=== PATIENT | female | born 1945 | race Caucasian/White ===

== ENCOUNTER 2022-02-04 14:17 | Emergency (ER) | payer MEDICARE, BC, SELFPAY ==
[2022-02-04 14:19] VITALS: BP 121/92; PULSE 75; RESP 18; TEMP 36.1; O2SAT 95; BMI 29.2
[2022-02-04 14:44] VITALS: BP 126/70; PULSE 72; RESP 18; O2SAT 96
--- NOTE | 2022-02-04 14:55 | RAD_ITS ---
STUDY: X-RAY - RIGHT HAND REASON FOR EXAM: Female, 76 years old. INJURY TECHNIQUE: 3 view(s) of the hand. COMPARISON: None. FINDINGS: Bones are demineralized. Degenerative arthrosis noted at all visualized joint spaces, most notably at the base of the thumb, and in the IP joint of the thumb, and PIP and DIP joints of the second to the fifth fingers. No subchondral erosions. No demonstrated fracture or suspicious osseous lesion. No foreign body or soft tissue swelling. RAD/Hand Min 3 Views IMPRESSION: Osteopenia with polyarticular arthrosis, no demonstrated fracture Electronically Signed: bAbe Morrison MD at 15:33 EDT ,
--- NOTE | 2022-02-04 14:58 | EDS_ITS ---
HPI History of Present Illness Chief Complaint: Upper Extremity Injury Informant: patient Narrative Narrative: Patient is a 76-year-old female with recent diagnosis of COVID-19 infection yesterday presenting for evaluation after fall. Patient states she tripped on her dog Friday, 2 days ago, causing her to fall on both her arms outstretched and her bilateral knees. She also landed on her right face. No loss of conscious reported. She is not on any blood thinners. The following day she was having difficulty moving her hands and using her fingers for buttons. Denies any numbness. Note she has been fatigued with COVID-19 infection but her headache is resolved. She has a mild dry cough. The symptoms also started on Friday, 2 days ago. [facility] Medical History Hypertension Home Medications gemfibrozil [Lopid] 600 mg PO BID 02/04/22 [History Last Taken Unknown] hydrochlorothiazide 12.5 mg PO DAILY 02/04/22 [History Last Taken Unknown] timolol 1 drp EACH EYE BID 02/04/22 [History Last Taken Unknown] Allergy/AdvReac Type Severity Reaction Status Date / Time Sulfa (Sulfonamide Allergy Rash Verified 02/04/22 14:21 Antibiotics) adhesive AdvReac Rash Verified 02/04/22 14:21 meperidine [From Demerol] AdvReac Nausea Verified 02/04/22 14:21 Surgical History History of knee replacement Social History Smoking Status: Former smoker ROS ROS ED Constitutional Constitutional ED: Reports other Details: fatigue ; Denies chills or fever(s) Eyes Eyes: Denies blurry vision, change in vision or diplopia ENT ENT ED: Denies sore throat Cardiovascular Cardiovascular: Denies chest pain Respiratory/Chest Respiratory/Chest: Reports cough; Denies dyspnea Gastrointestinal Gastrointestinal: Denies abdominal pain, nausea or vomiting Genitourinary Genitourinary ED: Denies dysuria or hematuria Musculoskeletal Musculoskeletal: Reports myalgias Integumentary Denies rash Neurologic Neurologic: Reports weakness; Denies headache(s) or paresthesias Psychiatric Psychiatric: Denies anxiety or depression EXAM Physical Exam Const Vital Signs: 02/04/22 14:19 02/04/22 14:44 Temperature 97 F L Temperature Source Temporal Pulse Rate 75 72 Respiratory Rate 18 18 Blood Pressure 121/92 H 126/70 H Blood Pressure Mean 101 88 Pulse Ox 95 96 Oxygen Delivery Method Room Air Room Air Positive well nourished and well developed General Appearance ED: well developed and NAD HEENT Reports moist mucous membranes normocephalic and atraumatic Eyes PERRL and EOMs intact bilaterally Neck full ROM and supple General: Negative for tenderness Chest Wall inspection of chest normal Resp normal respiratory effort and clear to auscultation bilaterally Cardio regular rate, regular rhythm and no murmurs Cardio Narrative: 2+ radial pulses GI non-tender and non-distended Palpation: soft Extremity Extremity Narrative: No obvious deformity or bony tenderness. Patient does have some weakness with extension of the left wrist but she is able to overcome gravity. She is able to make an okay sign and thumbs up sign however she has difficulty fully extending her fourth and fifth fingers. No numbness apprecia stevan. Patient has difficulty AB ducting the third fourth and fifth left fingers. General Extremety ED: Negative for edema General Extremity: Negative for edema Neuro oriented x3, CN's II-XII intact bilaterally, moves all extremities and no sensory deficits noted Neuro Narrative: Patient has decreased strength in the ulnar nerve distribution of the left hand but no central defects appreciated. Sensorium / Orientation: alert Psych mental status grossly normal Mood & Affect: Negative for depressed or tearful Skin Skin Narrative: Linear abrasion to the right lower leg and a small abrasion to the right mid forearm which patient states are from her dog Lesions: no lesions Rashes: no rashes Trauma: abrasion MDM MDM MDM Narrative Medical decision making narrative: Patient is evaluated for left hand weakness after mechanical fall 2 days ago. She is also had a positive test for COVID yesterday. From a COVID standpoint she is doing well. Is not hypoxic. She does have some viral symptoms. She is clear breath sounds. She does not need further evaluation or work-up for this. Her left hand weakness is highly consistent with neuropraxia likely associated with her fall and I do not think it is a central process. The weakness is localized to extension of the wrist and movement of the third through fifth fingers. I suspect this is an ulnar nerve palsy versus VIII nerve root palsy. Patient is placed in a splint for her hand. Is given orthopedic for outpatient follow-up. X-ray of the wrist shows osteopenia no acute fracture. X-rays reviewed by myself as well as radiology. CT of the brain is obtained because she hit her head 2 days ago with a fall. I did not obtain a CT because of her arm weakness is a's believe that that is peripheral in nature. Patient is given return precautions patient discharged home in stable condition. 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
--- NOTE | 2022-02-04 15:04 | CT_ITS ---
STUDY: CT BRAIN WITHOUT CONTRAST REASON FOR EXAM: Female, 76 years old. Headache after a fall RADIATION DOSAGE (If Supplied By Facility): CTDIvol = ( 44.99 ) mGy, DLP = ( 812.98 ) mGycm TECHNIQUE: Transaxial CT imaging of the brain was performed without administration of intravenous contrast material. Individualized dose optimization techniques were used for this CT. COMPARISON: No relevant priors. FINDINGS: Normal soft tissue structures. Normal calvarium. Normal size ventricles and extra-axial spaces for the patient''s age. Normal white matter tracts of the cerebral hemispheres. Normal basal ganglia and thalami. Normal brainstem. Normal cerebellum. There is no intracranial hemorrhage. There are no findings of an acute ischemic infarction. Normal visualized paranasal sinuses. CT/Brain/Head without Contrast IMPRESSION: Chronic involutional changes of the brain, no acute hemorrhage. Electronically Signed: Abbe Morrison MD at 15:35 EDT ,
== END 2022-02-04 15:59 | disposition home or self-care (01) ==
PROVIDERS: Emergency Provider Emergency Medicine; PCP Internal Medicine; Visit Provider Emergency Medicine
DX: S09.90XA Unspecified injury of head, initial encounter (principal); Z87.891 Personal history of nicotine dependence; R53.1 Weakness; I10 Essential (primary) hypertension; U07.1 COVID-19; Z79.899 Other long term (current) drug therapy; S54.02XA Injury of ulnar nerve at forearm level, left arm, initial encounter; W01.0XXA Fall on same level from slipping, tripping and stumbling without subsequent striking against object, initial encounter; Y93.9 Activity, unspecified; Y99.9 Unspecified external cause status; Y92.9 Unspecified place or not applicable
CPT/HCPCS: 70450; 73130; 99283

== ENCOUNTER → 2022-05-06 | Outpatient (CLI) | payer MEDICARE, BC, SELFPAY ==
[2022-05-06 16:52] LABS: Absolute Lymphocyte Count 1.83 X10^3/uL (0.83-4.51); Basophil# 0.06 X10^3/uL; Basophil% 1.1 % (0-1); Eosinophil# 0.18 X10^3/uL; Eosinophils% 3.2 % (0-5); Hematocrit 38.7 % (37-47); Hemoglobin 12.8 g/dL (12.0-15.0); Lymphocyte # 1.83 X10^3/ul (0.83-4.51); Lymphocyte % 32.7 % (19-41); Mean Corp Hgb Conc 33.1 g/dL (32-36); Mean Corpuscular Volume 90.6 fL (81-99); Mean Platelet Vol. 10.6 fl (6.2-12.0); Monocyte# 0.56 X10^3/uL; NRBC Flagged by Analyzer 0 % (0-5); Neutrophil # 2.95 X10^3/uL (2.7-7.7); Neutrophil % 52.8 % (47-70); Platelet Count 317 K/mm3 (150-450); RBC Distribution Width CV 13.4 % (11.6-14.6); RBC Distribution Width SD 44.1 fl (35.1-43.9); Red Blood Count 4.27 M/mm3 (4.2-5.4); White Blood Count 5.6 K/mm3 (4.4-11.0)
[2022-05-06 17:00] LABS: ALB/GLOB Ratio 0.8 RATIO (0.9-2.4); AST(SGOT) 25 U/L (15-37); Alanine Aminotransfer ALT/SGPT 25 U/L (13-56); Albumin, Serum 3.5 g/dL (3.2-5.0); Alkaline Phosphatase 59 U/L (45-117); Anion Gap 5 (5-15); BUN 20 mg/dL (7-18); BUN/Creat Ratio 28.1 RATIO (10-20); Calcium,Total 9.9 mg/dL (8.5-10.1); Chloride 103 mmol/L (98-107); Cholesterol 191 mg/dL (200); Creatinine, Serum 0.71 mg/dL (0.55-1.02); EST Glomerular Filtration Rate 84 mL/min (>60); Est Glom Filt Rate - Afr Amer 102 mL/min (>60); Globulin 4.2 g/dL (2.2-4.2); Glucose 85 mg/dL (74-106); High Density Lipoprotein 86 mg/dL; Potassium 4.1 mmol/L (3.5-5.1); Protein, Total 7.7 g/dL (6.4-8.2); Sodium Level 137 mmol/L (136-145); Triglycerides 49 mg/dL; Very Low Density Lipoprotein 10 mg/dL (5-40)
== END | disposition home or self-care (01) ==
LOC: BIMLAB 15:15
PROVIDERS: PCP Internal Medicine; Referring Provider Internal Medicine; Visit Provider Internal Medicine
DX: E78.5 Hyperlipidemia, unspecified (principal); I10 Essential (primary) hypertension
CPT/HCPCS: 36415; 80053; 80061; 85025

== ENCOUNTER → 2022-05-14 | Outpatient (CLI) | payer MEDICARE, BC, SELFPAY ==
--- NOTE | 2022-05-14 16:07 | BI_ITS ---
MAMMOGRAPHY - BILATERAL SCREENING REASON FOR EXAM: Female, 76 years old. Routine annual screening examination. PERTINENT HISTORY: Sister with breast cancer. Mother with breast cancer. TECHNIQUE: Digital bilateral breast francis (3D mammographic acquisition) in the CC and MLO projections. 2-D mediolateral oblique (MLO) and craniocaudad (CC) views of both breasts were obtained. CAD: Full Field Digital Mammography with Computer Added Detection was performed. COMPARISON: Comparison is made with prior examination dated 03/25/2020. FINDINGS: Breast Composition: The breasts are heterogeneously dense, which may obscure small masses. There are no dominant masses or suspicious calcifications. Stable small benign appearing bilateral axillary nodes. No other significant abnormalities are identified. There has been no significant change since the prior study. BI/SCRN MAMM (CAD)W/FRANCIS BILAT IMPRESSION: Stable bilateral screening mammogram. Yearly follow-up mammogram recommended. (A) ASSESSMENT CATEGORY: BIRADS Category 2: Benign. A letter regarding these results will be sent to the patient by the facility within 30 days. Approximately 10% of breast cancers are not detected by mammography. A normal mammogram should not delay biopsy of a clinically suspicious abnormality. [id number] Electronically Signed: Jose Carlos Jones MD at 8:24 EDT ,
--- NOTE | 2022-05-14 16:11 | BD_ITS ---
STUDY: DUAL ENERGY X-RAY ABSORPTIOMETRY / DXA REASON FOR EXAM: Female, 76 years old. Post menopausal TECHNIQUE: Bone Mineral Density (BMD) measurements of lumbar spine and bilateral hips were obtained. COMPARISON: None. FINDINGS: Lumbar Spine (L1-L4): g/cm2 (1.082) / T-score (0.3) / Z-score (2.9) Findings are suggestive of normal bone density with a low fracture risk. Left Femur Total: g/cm2 (0.933) / T-score (-0.1) / Z-score (1.9) Left Femoral Neck: g/cm2 (0.668) / T-score (-1.6) / Z-score (0.6) Right Femur Total: g/cm2 (0.962) / T-score (0.2) / Z-score (2.2) Right Femoral Neck: g/cm2 (0.706) / T-score (-1.3) / Z-score (1.0) BD/Dexa Bone Density Study IMPRESSION: The patient is considered osteopenic as outlined below according to World Torin Organization (WHO) criteria with a moderate fracture risk. Reference Information: The T-score is the number of standard deviations above or below the standard which is normal for young adults at their peak bone mineral density. The World Health Organization (WHO) interprets the T-scores as follows: Above -1 Normal bone density Between -1 and -2.5 Osteopenia Equal to / or below -2.5 Osteoporosis As a practical clinical guideline, osteopenia may be graded as follows: Mild -1 through -1.5 Moderate -1.6 through -2.0 Severe -2.1 through -2.4 The Z-score is the number of standard deviations above or below age-matched controls. A Z-score of less than -1.5 would be considered abnormal. References: 1. NIH Osteoporosis and Related Bone Diseases www osteo.org 2. International Society for Clinical Densitometry www iscd.org 3. National Osteoporosis Foundation www nof.org Electronically Signed: Jose Carlos Jones MD at 12:18 EDT ,
== END | disposition home or self-care (01) ==
LOC: OPBD 16:06
PROVIDERS: PCP Internal Medicine; Referring Provider Internal Medicine; Visit Provider Internal Medicine
DX: Z78.0 Asymptomatic menopausal state (principal); Z12.31 Encounter for screening mammogram for malignant neoplasm of breast
CPT/HCPCS: 77063; 77067; 77080

== ENCOUNTER → 2023-02-17 | Outpatient (CLI) | payer OTHER, MEDICARE, SELFPAY ==
[2023-02-17 15:20] LABS: Absolute Lymphocyte Count 1.44 X10^3/uL (0.83-4.51); Absolute Neutrophil Count 3.3 X10^3/uL (2.0-7.7); Basophil# 0.06 X10^3/uL; Basophil% 1.1 % (0-1); Eosinophil# 0.32 X10^3/uL; Eosinophils% 5.6 % (0-5); Hematocrit 38.3 % (37-47); Hemoglobin 12.7 g/dL (12.0-15.0); Lymphocyte # 1.44 X10^3/ul (0.83-4.51); Lymphocyte % 25.3 % (19-41); Mean Corp Hgb Conc 33.2 g/dL (32-36); Mean Corpuscular Hgb 30.8 pg (27.0-32.0); Mean Corpuscular Volume 92.7 fL (81-99); Mean Platelet Vol. 10.4 fl (6.2-12.0); Monocyte# 0.59 X10^3/uL; Monocyte% 10.4 % (0-10); NRBC Flagged by Analyzer 0 % (0-5); Neutrophil # 3.28 X10^3/uL (2.7-7.7); Neutrophil % 57.4 % (47-70); Platelet Count 329 K/mm3 (150-450); RBC Distribution Width CV 13.3 % (11.6-14.6); RBC Distribution Width SD 44.8 fl (35.1-43.9); Red Blood Count 4.13 M/mm3 (4.2-5.4); White Blood Count 5.7 K/mm3 (4.4-11.0)
[2023-02-17 16:02] LABS: AST(SGOT) 26 U/L (15-37); Alanine Aminotransfer ALT/SGPT 19 U/L (13-56); Albumin, Serum 3.7 g/dL (3.2-5.0); Alkaline Phosphatase 73 U/L (45-117); Anion Gap 4 (5-15); BUN 21 mg/dL (7-18); Calcium,Total 9.9 mg/dL (8.5-10.1); Chloride 109 mmol/L (98-107); Cholesterol 190 mg/dL (200); EST Glomerular Filtration Rate 86 mL/min (>60); Est Glom Filt Rate - Afr Amer 104 mL/min (>60); Globulin 3.8 g/dL (2.2-4.2); Glucose 94 mg/dL (74-106); High Density Lipoprotein 85 mg/dL; Potassium 4.3 mmol/L (3.5-5.1); Protein, Total 7.5 g/dL (6.4-8.2); Sodium Level 138 mmol/L (136-145); Triglycerides 79 mg/dL; Very Low Density Lipoprotein 16 mg/dL (5-40)
== END | disposition home or self-care (01) ==
LOC: BIMLAB 14:27
PROVIDERS: PCP Internal Medicine; Visit Provider Internal Medicine
DX: I10 Essential (primary) hypertension (principal)
CPT/HCPCS: 36415; 80053; 80061; 85025

== ENCOUNTER → 2023-05-20 | Outpatient (CLI) | payer MEDICARE, SELFPAY ==
--- NOTE | 2023-05-20 11:52 | BI_ITS ---
MAMMOGRAPHY - BILATERAL SCREENING REASON FOR EXAM: Female, 77 years old. Routine annual screening examination. PERTINENT HISTORY: Sister with breast cancer. Mother with breast cancer. TECHNIQUE: Digital bilateral breast francis (3D mammographic acquisition) in the CC and MLO projections. 2-D mediolateral oblique (MLO) and craniocaudad (CC) views of both breasts were obtained. CAD: Full Field Digital Mammography with Computer Added Detection was performed. COMPARISON: Comparison is made with prior study May 14, 2022. FINDINGS: Breast Composition: There are scattered areas of fibroglandular density. There are no dominant masses or suspicious calcifications. Stable small benign-appearing bilateral axillary lymph nodes. No other significant abnormalities are identified. There has been no significant change since the prior study. BI/SCRN MAMM (CAD)W/FRANCIS BILAT IMPRESSION: Stable bilateral screening mammogram. Yearly follow-up mammogram recommended. (A) ASSESSMENT CATEGORY: BIRADS Category 2: Benign. A letter regarding these results will be sent to the patient by the facility within 30 days. Approximately 10% of breast cancers are not detected by mammography. A normal mammogram should not delay biopsy of a clinically suspicious abnormality. [id number] Electronically Signed: Jose Carlos Jones MD at 12:52 EDT ,
== END | disposition home or self-care (01) ==
LOC: OPBI 11:51
PROVIDERS: PCP Internal Medicine; Referring Provider Internal Medicine; Visit Provider Internal Medicine
DX: Z12.31 Encounter for screening mammogram for malignant neoplasm of breast (principal)
CPT/HCPCS: 77063; 77067

== ENCOUNTER → 2023-08-25 | Outpatient (CLI) | payer MEDICARE, SELFPAY ==
[2023-08-25 15:35] LABS: Absolute Lymphocyte Count 1.69 X10^3/uL (0.83-4.51); Absolute Neutrophil Count 2.5 X10^3/uL (2.0-7.7); Basophil# 0.08 X10^3/uL; Basophil% 1.6 % (0-1); Eosinophils% 3.9 % (0-5); Hematocrit 40.6 % (37-47); Hemoglobin 12.7 g/dL (12.0-15.0); Lymphocyte # 1.69 X10^3/ul (0.83-4.51); Lymphocyte % 32.9 % (19-41); Mean Corp Hgb Conc 31.3 g/dL (32-36); Mean Corpuscular Hgb 28.7 pg (27.0-32.0); Mean Corpuscular Volume 91.9 fL (81-99); Mean Platelet Vol. 10.6 fl (6.2-12.0); Monocyte# 0.64 X10^3/uL; Monocyte% 12.5 % (0-10); NRBC Flagged by Analyzer 0 % (0-5); Neutrophil # 2.51 X10^3/uL (2.7-7.7); Neutrophil % 48.9 % (47-70); Platelet Count 332 K/mm3 (150-450); RBC Distribution Width CV 13.8 % (11.6-14.6); RBC Distribution Width SD 46.6 fl (35.1-43.9); Red Blood Count 4.42 M/mm3 (4.2-5.4); White Blood Count 5.1 K/mm3 (4.4-11.0)
[2023-08-25 15:56] LABS: Anion Gap 5 (5-15); BUN 17 mg/dL (7-18); BUN/Creat Ratio 26.4 RATIO (10-20); Calcium,Total 9.8 mg/dL (8.5-10.1); Chloride 106 mmol/L (98-107); Creatinine, Serum 0.64 mg/dL (0.55-1.02); EST Glomerular Filtration Rate 94 mL/min (>60); Est Glom Filt Rate - Afr Amer 114 mL/min (>60); Glucose 78 mg/dL (74-106); Potassium 4.2 mmol/L (3.5-5.1); Sodium Level 139 mmol/L (136-145)
== END | disposition home or self-care (01) ==
LOC: BIMLAB 14:02
PROVIDERS: PCP Internal Medicine; Referring Provider Internal Medicine; Visit Provider Internal Medicine
DX: I10 Essential (primary) hypertension (principal)
CPT/HCPCS: 36415; 80048; 85025

== ENCOUNTER → 2024-03-01 | Outpatient (CLI) | payer MEDICARE, SELFPAY ==
[2024-03-01 20:34] LABS: Anion Gap 7 (5-15); BUN 22 mg/dL (7-18); BUN/Creat Ratio 31.5 RATIO (10-20); Calcium,Total 10.2 mg/dL (8.5-10.1); Chloride 105 mmol/L (98-107); EST Glomerular Filtration Rate 86 mL/min (>60); Est Glom Filt Rate - Afr Amer 104 mL/min (>60); Glucose 101 mg/dL (74-106); Potassium 4.5 mmol/L (3.5-5.1); Sodium Level 137 mmol/L (136-145)
== END | disposition home or self-care (01) ==
LOC: BIMLAB 11:55
PROVIDERS: PCP Internal Medicine; Visit Provider Internal Medicine
DX: I10 Essential (primary) hypertension (principal)
CPT/HCPCS: 36415; 80048

== ENCOUNTER → 2024-03-16 | Outpatient (CLI) | payer MEDICARE, SELFPAY ==
--- NOTE | 2024-03-16 09:32 | BI_ITS ---
MAMMOGRAPHY - BILATERAL DIAGNOSTIC REASON FOR EXAM: Female, 78 years old. Bilateral Nipple Rash PERTINENT HISTORY: Non-contributory. TECHNIQUE: Digital examination. Mediolateral oblique (MLO) and craniocaudad (CC) views of both breasts were obtained. CAD: CAD was performed on this study. COMPARISON: 05/20/2023 FINDINGS: Breast Composition: There are scattered areas of fibroglandular density. There are no dominant masses or suspicious calcifications. No other significant abnormalities are identified. Bilateral benign vascular calcifications can be associated with coronary artery disease. BI/DIAG MAMM W/CAD, BILAT IMPRESSION: Stable bilateral diagnostic mammogram. ASSESSMENT CATEGORY: BIRADS Category 2: Benign. A letter regarding these results will be sent to the patient by the facility within 30 days. FOLLOW UP RECOMMENDATION: Yearly follow up mammogram recommended. (A) Approximately 10% of breast cancers are not detected by mammography. A normal mammogram should not delay biopsy of a clinically suspicious abnormality. Electronically Signed: Ezio Jacobsen MD at 10:18 EDT ,
== END | disposition home or self-care (01) ==
PROVIDERS: PCP Internal Medicine; Referring Provider Internal Medicine; Visit Provider Internal Medicine
DX: N64.89 Other specified disorders of breast (principal)
CPT/HCPCS: 77062; 77066; G0279

== ENCOUNTER 2024-08-02 18:52 | Emergency (ER) | payer MEDICARE, SELFPAY ==
[2024-08-02 18:52] VITALS: BP 118/103; PULSE 71; RESP 18; TEMP 35.9; O2SAT 99; BMI 31.2
--- NOTE | 2024-08-02 19:15 | EDS_ITS ---
HPI <MIKKI Saldana - Last Filed: 08/02/24 21:20> History of Present Illness Chief Complaint: Fall Narrative Narrative: Patient presenting today with pain to her right wrist and hand after a mechanical fall occurred this evening. She was walking her dog and the dog pulled her causing her to fall onto an outstretched right hand. She is right- handed. She did not hit her head, she denies any LOC. She is able to ambulate and denies any other injury. PFSH <MIKKI Saldana - Last Filed: 08/02/24 21:20> [facility] Medical History Visit for suture removal Muscle pain Face lesion Nipple crusting Contact dermatitis Osteoarthritis COVID Health care maintenance Hyperlipidemia Basal cell carcinoma Vision problem Skin cancer Osteopenia High cholesterol Hearing problem Glaucoma Cataract Arthritis Hypertension Home Medications ?Medication ?Instructions ?Recorded ?Last Taken ?Type flaxseed oil 1,000 mg capsule 1,000 mg PO DAILY 05/02/22 Unknown History folic acid 20 mg capsule 20 mg PO DAILY 05/02/22 Unknown History omega 9-wuh-xcz-fish oil 60 mg-90 1 cap PO DAILY 05/02/22 Unknown History mg-500 mg capsule (Fish Oil) turmeric 400 mg capsule mg PO 05/02/22 Unknown History timolol 0.5 % eye drops 1 drp ophthalmic (eye) DAILY 05/06/22 Unknown History coq10 PO 02/23/24 Unknown History hydrocortisone 2.5 % topical cream 1 applic topical BID PRN skin 02/23/24 Unknown Rx irritation #30 grams gemfibrozil 600 mg tablet (Lopid) 600 mg PO BID #180 tabs 04/22/24 Unknown Rx hydrochlorothiazide 12.5 mg capsule 12.5 mg PO DAILY #90 caps 04/22/24 Unknown Rx Allergy/AdvReac Type Severity Reaction Status Date / Time latex Allergy Mild Rash Verified 08/02/24 18:56 Sulfa (Sulfonamide Allergy Rash Verified 08/02/24 18:56 Antibiotics) adhesive AdvReac Rash Verified 08/02/24 18:56 meperidine (From Demerol) AdvReac Nausea Verified 08/02/24 18:56 Family History Sister Arthritis Breast cancer Mother Breast cancer Father Heart disease Brother Hypertension Parkinson disease Surgical History History of tubal ligation History of bunionectomy History of bilateral knee replacement History of knee replacement Social History Smoking Status: Former smoker Tobacco: How many years used: 2 alcohol intake: never substance use type: does not use what type of physical activity do you participate in: walking ROS <MIKKI Saldana - Last Filed: 08/02/24 21:20> ROS ED Constitutional Constitutional ED: Denies chills or fever(s) Cardiovascular Cardiovascular: Denies chest pain Respiratory/Chest Respiratory/Chest: Denies cough or dyspnea Musculoskeletal Musculoskeletal: Reports arthralgias Integumentary Denies rash Neurologic Neurologic: Denies paresthesias EXAM <MIKKI Saldana - Last Filed: 08/02/24 21:20> Physical Exam Const Vital Signs: 08/02/24 18:52 08/02/24 19:04 08/02/24 20:29 Temperature 96.7 F L 99 F Temperature Source Temporal Pulse Rate 71 70 Respiratory Rate 18 18 Respiratory Effort Normal Respiratory Depth Normal Respiratory Pattern Normal Blood Pressure 118/103 H 116/95 H Blood Pressure Mean 108 102 Pulse Ox 99 99 Oxygen Delivery Method Room Air Room Air Positive well nourished, well developed and no apparent distress General Appearance ED: well developed HEENT Reports normocephalic and head/scalp atraumatic Mouth ED: Yes moist mucous membranes normal Eyes PERRL and EOMs intact bilaterally Neck full ROM and supple Chest Wall inspection of chest normal Resp normal respiratory effort and clear to auscultation bilaterally Cardio regular rate and regular rhythm Back/Spine normal ROM and normal to inspection Extremity normal to inspection and full ROM Extremity Narrative: Pain to palpation to the right wrist and metacarpals, patient is able to flex and extend at the MCP, PIP, and DIP joints of all fingers of the right hand. Right radial pulse 2+, good cap refill, sensation intact. Neuro oriented x3, CN's II-XII intact bilaterally, moves all extremities, no focal motor deficits and no sensory deficits noted Sensorium / Orientation: awake and alert Psych mental status grossly normal and thought process normal Skin no rashes or lesions noted and no wounds <Dr. Yanick Feliz MD - Last Filed: 08/02/24 22:10> Physical Exam Const Vital Signs: 08/02/24 18:52 08/02/24 19:04 08/02/24 20:29 Temperature 96.7 F L 99 F Temperature Source Temporal Pulse Rate 71 70 Respiratory Rate 18 18 Respiratory Effort Normal Respiratory Depth Normal Respiratory Pattern Normal Blood Pressure 118/103 H 116/95 H Blood Pressure Mean 108 102 Pulse Ox 99 99 Oxygen Delivery Method Room Air Room Air [facility] <MIKKI Saldana - Last Filed: 08/02/24 21:20> [facility] Narrative Medical decision making narrative: Patient presenting today with pain to her right wrist and metacarpals after a mechanical fall occurred this evening. X-ray will be obtained to rule out fracture. X-ray shows slightly widened scapholunate space. She will be given a Velcro wrist splint. I have given her a referral for orthopedics. She was given Tylenol here for her pain. She can take Tylenol as needed at home for pain. RICE instructions were discussed. She will be discharged home in stable condition. Radiography X-Ray: Read by ED Physician Diagnostic Testing: Clinical Impression(s) from Imaging Studies Wrist X-Ray 08/02/24 19:20 IMPRESSION: Upper limits of normal to slightly widened scapholunate space, maximum 3 mm. Please correlate with exam and clinical suspicion of scapholunate dissociation and rotary subluxation of the scaphoid. Electronically Signed: Radha Salazar MD at 20:11 EST , <Dr. Yanick Feliz MD - Last Filed: 08/02/24 22:10> [facility] Radiography Diagnostic Testing: Clinical Impression(s) from Imaging Studies Wrist X-Ray 08/02/24 19:20 IMPRESSION: Upper limits of normal to slightly widened scapholunate space, maximum 3 mm. Please correlate with exam and clinical suspicion of scapholunate dissociation and rotary subluxation of the scaphoid. Electronically Signed: Radha Salazar MD at 20:11 EST , Treatment and Re-Evaluation Comments:: I have personally performed a face to face assessment of the patient and have reviewed the GIACOMO Note. I performed a substantive portion of the visit including all aspects of the following. My fragoso findings include: History is fall onto right hand/wrist, states that she was holding the leash and her dog pulled her down. Exam is tender throughout the carpus, able to range but with pain, including with supination/pronation. Neurovascular intact distally. Not able to re produce any tenderness in the metacarpals or fingers. She states it hurts to move them. 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 No other fractures or dislocations. Given that she is placed in a prefabricated splint, is neurovascular intact distally after placement, and advised to follow-up with orthopedics. Other additions or changes: [None] Discharge Plan Triage Chief Complaint: Fall ED Midlevel Provider: Leona Lux ED Provider: Yanick Feliz Dx/Rx/DC Orders Clinical Impression: Scapho-lunate dissociation, Fall Instructions: ED Wrist Sprain Prescriptions: No Action timolol 0.5 % drops 1 drp ophthalmic (eye) DAILY folic acid 20 mg capsule 20 mg PO DAILY omega 6-rto-xvo-fish oil [Fish Oil] 60-90-500 mg capsule 1 cap PO DAILY flaxseed oil 1,000 mg capsule 1,000 mg PO DAILY Rx Instructions: administer with a meal turmeric 400 mg capsule PO coq10 PO Rx Instructions: takes few times a week hydrocortisone 2.5 % cream 1 applic topical BID PRN (Reason: skin irritation) Qty: 30 1RF gemfibrozil [Lopid] 600 mg tablet 600 mg PO BID Qty: 180 1RF hydrochlorothiazide 12.5 mg capsule 12.5 mg PO DAILY Qty: 90 1RF Primary Care Provider: Phylicia Ward Referrals: Phylicia Ward MD [Primary Care Provider] - Ismael Moncada DO [Med Staff - Active Staff] - 1 Week Activity Restrictions/Additional Instructions: Follow-up with orthopedics, return for any other concerns. You can take Tylenol for your pain as needed. Print Language: Frisian Disposition Disposition: Home, Self Care Discharge Date/Time: 08/02/24 20:36
--- NOTE | 2024-08-02 19:20 | RAD_ITS ---
EXAM: XR RIGHT WRIST COMPLETE, 3 OR MORE VIEWS CLINICAL INDICATION: injury TECHNIQUE: Frontal, lateral and oblique views of the right wrist. COMPARISON: No relevant prior studies available. FINDINGS: BONES/JOINTS: Slight visibly widened space between the proximal scaphoid and lunate at 3 mm, 2 mm at the distal scapholunate space. A consensus measurement is not defined but a cut off of 3 mm-4 mm is considered reasonable to indicate scapholunate dissociation, often with rotary subluxation of the scaphoid. This current measurement is not pathognomonic. No visible fracture. Mild degenerative change at the base of the thumb. No sclerotic or destructive changes observed. SOFT TISSUES: Mild ventral and dorsal soft tissue swelling. No radiopaque foreign body. RAD/Wrist min 3 Views IMPRESSION: Upper limits of normal to slightly widened scapholunate space, maximum 3 mm. Please correlate with exam and clinical suspicion of scapholunate dissociation and rotary subluxation of the scaphoid. Electronically Signed: Radha Salazar MD at 20:11 EST ,
[2024-08-02] MEDS: Acetaminophen 325 MG Tablet 650 MG PO (19:41)
[2024-08-02 20:29] VITALS: BP 116/95; PULSE 70; RESP 18; TEMP 37.2; O2SAT 99
== END 2024-08-02 20:36 | disposition home or self-care (01) ==
PROVIDERS: Emergency Provider Emergency Medicine; PCP Internal Medicine; Visit Provider Emergency Medicine
DX: M25.531 Pain in right wrist (principal); Z86.16 Personal history of COVID-19; Z87.891 Personal history of nicotine dependence; W19.XXXA Unspecified fall, initial encounter
CPT/HCPCS: 73110; 99283

== ENCOUNTER → 2024-08-30 | Outpatient (CLI) | payer MEDICARE, SELFPAY ==
[2024-08-30 12:58] LABS: Bacteria 0 SEEN /hpf (None Seen); Mucous, Urine 0 SEEN /hpf (<or=2+); Red Blood Cells-Urine 0 SEEN /hpf (0-5); White Blood Cells 0 SEEN /hpf (0-5)
[2024-08-30 15:07] LABS: Absolute Neutrophil Count 2.1 X10^3/uL (2.0-7.7); Basophil# 0.05 X10^3/uL; Basophil% 1.2 % (0-1); Eosinophil# 0.14 X10^3/uL; Eosinophils% 3.4 % (0-5); Hematocrit 38.6 % (37-47); Hemoglobin 12.4 g/dL (12.0-15.0); Lymphocyte % 31.8 % (19-41); Mean Corp Hgb Conc 32.1 g/dL (32-36); Mean Corpuscular Hgb 29.8 pg (27.0-32.0); Mean Corpuscular Volume 92.8 fL (81-99); Monocyte# 0.45 X10^3/uL; NRBC Flagged by Analyzer 0 % (0-5); Neutrophil # 2.14 X10^3/uL (2.7-7.7); Neutrophil % 52.4 % (47-70); Platelet Count 302 K/mm3 (150-450); RBC Distribution Width CV 13.6 % (11.6-14.6); RBC Distribution Width SD 46.4 fl (35.1-43.9); Red Blood Count 4.16 M/mm3 (4.2-5.4); White Blood Count 4.1 K/mm3 (4.4-11.0)
[2024-08-30 15:12] LABS: Color, Urine Yellow (Yellow); Glucose, Dipstick Normal (Normal); Ketone-Dipstick Negative (Negative); Leukocyte Esterase-Dipstick Negative /ul (Negative); Nitrite-Dipstick Negative (Negative); Occult Blood-Urine Negative /ul (Negative); Protein-Dipstick Negative (Negative); Urine Bilirubin Dipstick Negative (Negative); Urine Clarity Sl. Cloudy (Clear); Urine Urobilinogen Normal (Normal)
[2024-08-30 15:41] LABS: Squamous Epithelial Cells - UA 0-5 SEEN /hpf (5-10)
[2024-08-30 15:41] LABS: ALB/GLOB Ratio 0.8 RATIO (0.9-2.4); AST(SGOT) 20 U/L (15-37); Alanine Aminotransfer ALT/SGPT 21 U/L (13-56); Albumin, Serum 3.4 g/dL (3.2-5.0); Alkaline Phosphatase 68 U/L (45-117); Anion Gap 5 (5-15); BUN 20 mg/dL (7-18); BUN/Creat Ratio 30.4 RATIO (10-20); Calcium,Total 9.8 mg/dL (8.5-10.1); Chloride 108 mmol/L (98-107); Cholesterol 199 mg/dL (200); Creatinine, Serum 0.66 mg/dL (0.55-1.02); EST Glomerular Filtration Rate 92 mL/min (>60); Est Glom Filt Rate - Afr Amer 111 mL/min (>60); Globulin 4.3 g/dL (2.2-4.2); Glucose 112 mg/dL (74-106); High Density Lipoprotein 91 mg/dL; Potassium 3.8 mmol/L (3.5-5.1); Protein, Total 7.7 g/dL (6.4-8.2); Sodium Level 139 mmol/L (136-145); Triglycerides 47 mg/dL; Very Low Density Lipoprotein 9 mg/dL (5-40)
[2024-08-30 18:13] LABS: Vitamin D,25 Hydroxy 40.4 ng/mL
== END | disposition home or self-care (01) ==
LOC: BIMLAB 11:49
PROVIDERS: PCP Internal Medicine; Referring Provider Internal Medicine; Visit Provider Internal Medicine
DX: M85.80 Other specified disorders of bone density and structure, unspecified site (principal); N32.81 Overactive bladder; E78.5 Hyperlipidemia, unspecified
CPT/HCPCS: 36415; 80053; 80061; 81001; 82306; 85025

== ENCOUNTER → 2025-01-31 | Outpatient (CLI) | payer MEDICARE, SELFPAY ==
[2025-01-31 15:22] LABS: Absolute Lymphocyte Count 1.16 X10^3/uL (0.83-4.51); Absolute Neutrophil Count 2.9 X10^3/uL (2.0-7.7); Basophil# 0.09 X10^3/uL; Basophil% 1.8 % (0-1); Eosinophil# 0.22 X10^3/uL; Eosinophils% 4.4 % (0-5); Hemoglobin 12.8 g/dL (12.0-15.0); Lymphocyte # 1.16 X10^3/ul (0.83-4.51); Lymphocyte % 23.1 % (19-41); Mean Corp Hgb Conc 32.8 g/dL (32-36); Mean Corpuscular Volume 91.3 fL (81-99); Mean Platelet Vol. 11.1 fl (6.2-12.0); Monocyte# 0.61 X10^3/uL; Monocyte% 12.1 % (0-10); NRBC Flagged by Analyzer 0 % (0-5); Neutrophil # 2.93 X10^3/uL (2.7-7.7); Neutrophil % 58.2 % (47-70); Platelet Count 305 K/mm3 (150-450); RBC Distribution Width CV 13.6 % (11.6-14.6); RBC Distribution Width SD 45.3 fl (35.1-43.9); Red Blood Count 4.27 M/mm3 (4.2-5.4)
[2025-01-31 16:11] LABS: Anion Gap 11 (5-15); BUN 26 mg/dL (4-19); BUN/Creat Ratio 43.4 RATIO (10-20); Calcium,Total 10.3 mg/dL (7.6-11.0); Carbon Dioxide 22.4 mmol/L (21.0-32.0); Chloride 105 mmol/L (98-108); Creatinine, Serum 0.59 mg/dL (0.70-1.20); EST Glomerular Filtration Rate 90 (>60); Glucose 91 mg/dL (70-99); Potassium 4.3 mmol/L (3.3-5.1); Sodium Level 139 mmol/L (133-145)
== END | disposition home or self-care (01) ==
LOC: BIMLAB 11:55
PROVIDERS: PCP Internal Medicine; Referring Provider Internal Medicine; Visit Provider Internal Medicine
DX: I10 Essential (primary) hypertension (principal)
CPT/HCPCS: 36415; 80048; 85025

== ENCOUNTER → 2025-04-18 | Outpatient (CLI) | payer MEDICARE, SELFPAY ==
--- NOTE | 2025-04-18 12:15 | BI_ITS ---
EXAM: SCRN MAMM (CAD)W/FRANCIS BILAT DATE: 04/18/2025 CLINICAL HISTORY: F, Age 79 y/o , BREAST CANCER SCREENING TECHNIQUE: SCRN MAMM (CAD)W/FRANCIS BILAT COMPARISON: Prior exam(s) dated 03/16/2024. FINDINGS: TISSUE DENSITY: The breasts are almost entirely fatty. Bilateral Breast Mammographic Findings: Benign vascular calcifications and round microcalcifications are seen in breasts. No suspicious masses, suspicious cluster of microcalcifications, architectural distortion or secondary sign of malignancy is identified in either breast. Stable well-circumscribed isodense masses are seen in the superior outer aspect of the right are noted. These appear to have fatty hilum on the francis images and are most compatible with intramammary lymph nodes. BI/SCRN MAMM (CAD)W/FRANCIS BILAT IMPRESSION: Benign screening mammogram OVERALL FINAL ASSESSMENT BI-RADS 2: BENIGN RECOMMENDATION: Routine annual follow-up in 1 Year A letter with findings and recommendations will be mailed to the patient. Reading Location: [id number]
== END | disposition home or self-care (01) ==
LOC: OPBI 12:09
PROVIDERS: PCP Internal Medicine; Referring Provider Internal Medicine; Visit Provider Internal Medicine
DX: Z12.31 Encounter for screening mammogram for malignant neoplasm of breast (principal)
CPT/HCPCS: 77063; 77067